=== PATIENT | male | born 1935 | race Caucasian/White ===

== ENCOUNTER 2018-06-10 00:34 | Inpatient (IN) | payer MEDICARE, OTHER ==
[~2018-06-10] VITALS: Ht 180.3 cm; Wt 92.7 kg
[2018-06-10] VITALS (13 sets, daily range): BP systolic 94–144; BP diastolic 47–85
[~2018-06-10 00:34] MED LIST: ALBU8.5H8 IH; CHOL10002 PO; DRON400T2 PO; FINA5TAB11 PO; FURO40TA4 PO; LISI-604 PO; OMEP40CA37 PO; PRAV10TA39 PO
[2018-06-10] MEDS ORDERED: POTA10TA19 PO (00:47)
[2018-06-10] MEDS ORDERED: GABA-532 PO (00:47)
[2018-06-10] MEDS ORDERED: FERR325T28 PO (00:47)
[2018-06-10] MEDS ORDERED: UMEC1DIS IH (00:47)
[2018-06-10] MEDS ORDERED: DRON400T2 PO (00:47)
[2018-06-10] MEDS ORDERED: normal saline 1000ML IV soln IVB ONE (00:55)
[2018-06-10] MEDS ORDERED: meclizine 12.5mg tablet PO ONE (00:55)
[2018-06-10 01:11] LABS: BASOPHILS # (AUTO) 0.1 X10'3 (0-0.2); BASOPHILS % (AUTO) 1.1 % (0-1); EOSINOPHILS # (AUTO) 0.2 X10'3 (0-0.9); EOSINOPHILS % (AUTO) 3.5 % (0-6); LYMPHOCYTES # (AUTO) 1.9 X10'3 (1.1-4.8); MEAN CORPUSCULAR HEMOGLOBIN 24.3 PG (27.0-31.0); MEAN CORPUSCULAR HGB CONC 32.2 % (33.0-36.5); MEAN CORPUSCULAR VOLUME 75.5 FL (78-98); MEAN PLATELET VOLUME 8.4 FL (7.4-10.4); MONOCYTES # (AUTO) 0.5 X10'3 (0-0.9); MONOCYTES % (AUTO) 8.1 % (2-12); NEUTROPHILS % (AUTO) 59.3 % (42-75); PLATELET COUNT 225 X10'3 (140-440); RED BLOOD COUNT 2.61 X10'6 (4.70-6.10); RED CELL DISTRIBUTION WIDTH 18.8 % (11.5-14.5); WHITE BLOOD COUNT 6.7 X10'3 (4.5-11.0)
[2018-06-10 01:18] LABS: HEMATOCRIT 19.7 % (42.0-52.0); HEMOGLOBIN 6.4 g/dl (14.0-17.9)
[2018-06-10 01:26] LABS: ALANINE AMINOTRANSFERASE 21 U/L (12-78); ALBUMIN 3.2 G/DL (3.4-5.0); ALBUMIN/GLOBULIN RATIO 0.8 (1.1-1.5); ALKALINE PHOSPHATASE 78 IU/L (46-116); ANION GAP 10 (8-16); ASPARTATE AMINO TRANSFERASE 19 U/L (10-37); BILIRUBIN,TOTAL 0.2 MG/DL (0.1-1.0); BLOOD UREA NITROGEN 31 MG/DL (7-18); BUN/CREATININE RATIO 17.9 (5.4-32.0); CALCIUM 8.5 MG/DL (8.5-10.1); CHLORIDE 108 MMOL/L (99-107); CREATININE 1.73 MG/DL (0.60-1.10); GLUCOSE 116 MG/DL (70-104); SODIUM 141 MMOL/L (135-145); TOTAL CARBON DIOXIDE 22.7 MMOL/L (24-32); eGFR 38 ML/MIN
[2018-06-10 01:27] LABS: D-DIMER 4.14 MG/L FEU (0-0.50)
[2018-06-10] MEDS ORDERED: normal saline 1000ml 1,000 ML IV SCH (02:38)
[2018-06-10] MEDS ORDERED: ondansetron/PF 4mg/2ml inj IV PRN (02:40)
[2018-06-10] MEDS ORDERED: mag hydrox/Alum hydrox/simeth 30ml oral suspension PO PRN (02:40)
[2018-06-10] MEDS ORDERED: magnesium hydroxide 30ml (MOM) UD suspension PO PRN (02:40)
[2018-06-10] MEDS ORDERED: acetaminophen 325mg tablet PO PRN (02:40)
[2018-06-10] MEDS ORDERED: furosemide 10 MG/1 ML 10ml inj IV ONE (02:45)
[2018-06-10 02:58] LABS: RETICULOCYTE % (AUTO) 2.1 % (0.5-1.5)
[2018-06-10 03:00] LABS: ABSOLUTE RETICS # 57000 /CUMM (23000-93000)
[2018-06-10] MEDS ORDERED: albuterol 2.5 MG/3 ML nebule NEB PRN (04:00)
[2018-06-10] MEDS ORDERED: pantoprazole 40mg Tablet.DR PO SCH (08:00)
[2018-06-10] MEDS ORDERED: Umeclidinium Brm/Vilanterol Tr (Anoro Ellipta 62.5-25 Mcg INH) IH SCH (08:00)
[2018-06-10] MEDS ORDERED: dronedarone hcl 400mg tablet PO SCH (08:00)
[2018-06-10] MEDS: finasteride 5mg tablet PO SCH (08:57)
[2018-06-10 12:25] LABS: BASOPHILS % (AUTO) 0.4 % (0-1); EOSINOPHILS # (AUTO) 0.2 X10'3 (0-0.9); EOSINOPHILS % (AUTO) 3.9 % (0-6); HEMATOCRIT 26.5 % (42.0-52.0); HEMOGLOBIN 8.3 g/dl (14.0-17.9); LYMPHOCYTES # (AUTO) 1.4 X10'3 (1.1-4.8); LYMPHOCYTES % (AUTO) 21.8 % (21-51); MEAN CORPUSCULAR HEMOGLOBIN 24.3 PG (27.0-31.0); MEAN CORPUSCULAR HGB CONC 31.4 % (33.0-36.5); MEAN CORPUSCULAR VOLUME 77.4 FL (78-98); MEAN PLATELET VOLUME 8.2 FL (7.4-10.4); MONOCYTES # (AUTO) 0.6 X10'3 (0-0.9); MONOCYTES % (AUTO) 10.1 % (2-12); NEUTROPHILS % (AUTO) 63.8 % (42-75); PLATELET COUNT 259 X10'3 (140-440); RED BLOOD COUNT 3.42 X10'6 (4.70-6.10); RED CELL DISTRIBUTION WIDTH 19.3 % (11.5-14.5); WHITE BLOOD COUNT 6.3 X10'3 (4.5-11.0)
[2018-06-10 15:55] LABS: OCCULT BLOOD STOOL NEGATIVE (Neg)
[2018-06-10] MEDS: pantoprazole 40 MG vial IV SCH (16:21)
[2018-06-10 20:58] LABS: % IRON SATURATION 33 % (11-46); IRON 117 UG/DL (53-167); TOTAL IRON BINDING CAPACITY 358 UG/DL (259-388)
[2018-06-11] VITALS: BP 134/55
[2018-06-11 06:13] LABS: ALANINE AMINOTRANSFERASE 17 U/L (12-78); ALBUMIN 2.9 G/DL (3.4-5.0); ALBUMIN/GLOBULIN RATIO 0.8 (1.1-1.5); ALKALINE PHOSPHATASE 69 IU/L (46-116); ANION GAP 10 (8-16); BILIRUBIN,TOTAL 0.3 MG/DL (0.1-1.0); BLOOD UREA NITROGEN 24 MG/DL (7-18); BUN/CREATININE RATIO 15.8 (5.4-32.0); CALCIUM 8.5 MG/DL (8.5-10.1); CHLORIDE 108 MMOL/L (99-107); CREATININE 1.52 MG/DL (0.60-1.10); GLUCOSE 82 MG/DL (70-104); SODIUM 139 MMOL/L (135-145); TOTAL CARBON DIOXIDE 20.6 MMOL/L (24-32); TOTAL PROTEIN 6.5 G/DL (6.4-8.2); eGFR 44 ML/MIN
[2018-06-11 06:18] LABS: ASPARTATE AMINO TRANSFERASE 34 U/L (10-37); POTASSIUM 4.6 MMOL/L (3.5-5.1)
[2018-06-11 07:12] VITALS: BP 128/62
[2018-06-11 07:27] LABS: BASOPHILS % (AUTO) 0.4 % (0-1); EOSINOPHILS # (AUTO) 0.3 X10'3 (0-0.9); EOSINOPHILS % (AUTO) 3.7 % (0-6); HEMATOCRIT 24.2 % (42.0-52.0); HEMOGLOBIN 7.7 g/dl (14.0-17.9); LYMPHOCYTES # (AUTO) 1.7 X10'3 (1.1-4.8); LYMPHOCYTES % (AUTO) 23.9 % (21-51); MEAN CORPUSCULAR HEMOGLOBIN 24.4 PG (27.0-31.0); MEAN CORPUSCULAR HGB CONC 31.9 % (33.0-36.5); MEAN CORPUSCULAR VOLUME 76.3 FL (78-98); MEAN PLATELET VOLUME 8.1 FL (7.4-10.4); MONOCYTES # (AUTO) 0.7 X10'3 (0-0.9); MONOCYTES % (AUTO) 9.8 % (2-12); NEUTROPHILS # (AUTO) 4.4 X10'3 (1.8-7.7); NEUTROPHILS % (AUTO) 62.2 % (42-75); PLATELET COUNT 231 X10'3 (140-440); RED BLOOD COUNT 3.17 X10'6 (4.70-6.10); RED CELL DISTRIBUTION WIDTH 19.6 % (11.5-14.5); WHITE BLOOD COUNT 7.1 X10'3 (4.5-11.0)
[2018-06-11] MEDS: pantoprazole 40 MG vial IV SCH (09:22)
[2018-06-11] MEDS: finasteride 5mg tablet PO SCH (09:26)
[2018-06-11] MEDS ORDERED: amiodarone 200mg tablet PO SCH (10:20)
[2018-06-11 12:09] LABS: BASOPHILS # (AUTO) 0.1 X10'3 (0-0.2); BASOPHILS % (AUTO) 0.9 % (0-1); EOSINOPHILS # (AUTO) 0.3 X10'3 (0-0.9); EOSINOPHILS % (AUTO) 3.3 % (0-6); HEMATOCRIT 25.9 % (42.0-52.0); HEMOGLOBIN 8.2 g/dl (14.0-17.9); LYMPHOCYTES # (AUTO) 1.5 X10'3 (1.1-4.8); LYMPHOCYTES % (AUTO) 18.9 % (21-51); MEAN CORPUSCULAR HEMOGLOBIN 24.2 PG (27.0-31.0); MEAN CORPUSCULAR HGB CONC 31.6 % (33.0-36.5); MEAN CORPUSCULAR VOLUME 76.7 FL (78-98); MEAN PLATELET VOLUME 8.3 FL (7.4-10.4); MONOCYTES # (AUTO) 0.6 X10'3 (0-0.9); MONOCYTES % (AUTO) 7.9 % (2-12); NEUTROPHILS # (AUTO) 5.5 X10'3 (1.8-7.7); PLATELET COUNT 252 X10'3 (140-440); RED BLOOD COUNT 3.37 X10'6 (4.70-6.10); RED CELL DISTRIBUTION WIDTH 19.3 % (11.5-14.5)
[2018-06-11] MEDS ORDERED: ASPI81TA52 PO (12:41)
[2018-06-11 12:49] VITALS: BP 125/53
== END 2018-06-11 14:50 | disposition home or self-care (01) | DRG 292 ==
LOC: ER 00:34 → ED HOLD 02:38 → EDBEDREQTM 03:18 → SUR 3N 03:35 → CMPBEDREQ 04:18
PROVIDERS: ADMIT Internal Medicine; ATTEND Internal Medicine
PROC: 30233N1 Transfusion of Nonautologous Red Blood Cells into Peripheral Vein, Percutaneous Approach (ICD-10-PCS; principal; 2018-06-10)
PROC: CB121ZZ Planar Nuclear Medicine Imaging of Lungs and Bronchi using Technetium 99m (Tc-99m) (ICD-10-PCS; 2018-06-10)
PROC: 4B02XTZ Measurement of Cardiac Defibrillator, External Approach (ICD-10-PCS; 2018-06-10)
DX: I13.0 Hypertensive heart and chronic kidney disease with heart failure and stage 1 through stage 4 chronic kidney disease, or unspecified chronic kidney disease (principal); I50.22 Chronic systolic (congestive) heart failure; I42.9 Cardiomyopathy, unspecified; D63.8 Anemia in other chronic diseases classified elsewhere; E78.5 Hyperlipidemia, unspecified; Z96.659 Presence of unspecified artificial knee joint; M10.9 Gout, unspecified; R00.1 Bradycardia, unspecified; G25.81 Restless legs syndrome; I48.0 Paroxysmal atrial fibrillation; J44.9 Chronic obstructive pulmonary disease, unspecified; N18.3 Chronic kidney disease, stage 3 (moderate); Z90.5 Acquired absence of kidney; Z91.041 Radiographic dye allergy status; Z95.810 Presence of automatic (implantable) cardiac defibrillator; Z88.0 Allergy status to penicillin; Z88.8 Allergy status to other drugs, medicaments and biological substances; Z79.82 Long term (current) use of aspirin; Z79.899 Other long term (current) drug therapy; Z87.891 Personal history of nicotine dependence; Z85.528 Personal history of other malignant neoplasm of kidney; Z86.73 Personal history of transient ischemic attack (TIA), and cerebral infarction without residual deficits; Z86.718 Personal history of other venous thrombosis and embolism
CPT/HCPCS: 36415; 71045; 71250; 74176; 78582; 80053; 82272; 83540; 83550; 83735; 83880; 84484; 85025; 85045; 85379; 86885; 86900; 86901; 86920; 87070; 93005; 97116; 97162; 99285; A9539; A9540; C9113; G0378; J1940; J7030; J8597; P9016

== ENCOUNTER 2018-07-25 09:41 | Emergency (ER) | payer MEDICARE, OTHER ==
[~2018-07-25] VITALS: Ht 180.3 cm; Wt 100.0 kg
[~2018-07-25 09:41] MED LIST changes: +ASPI81TA52 PO; -DRON400T2 PO; +FERR325T28 PO; -FURO40TA4 PO; +GABA-532 PO; +UMEC1DIS IH
[2018-07-25] MEDS ORDERED: HYDROcodone/acetaminophen 10/325mg tab PO ONE (10:35)
[2018-07-25] MEDS ORDERED: HYDR-4353 PO (12:00)
--- NOTE | 2018-07-25 12:45 | NUR ---
PT GIVEN PHONE TO CELIA ROSAS AND SET UP A RIDE HOME.
--- NOTE | 2018-07-25 12:51 | NUR ---
DR HOLLINS NOTIFIED THAT PT WOULD LIKE TO SEE HIM BEFORE HE HEADS HOME.
[2018-07-25 13:36] VITALS: BP 164/78
== END 2018-07-25 13:38 | disposition home or self-care (01) ==
LOC: ER 09:42
DX: S22.32XA Fracture of one rib, left side, initial encounter for closed fracture (principal); I10 Essential (primary) hypertension; Z86.73 Personal history of transient ischemic attack (TIA), and cerebral infarction without residual deficits; J44.9 Chronic obstructive pulmonary disease, unspecified; Z88.0 Allergy status to penicillin; Z88.8 Allergy status to other drugs, medicaments and biological substances; Z79.82 Long term (current) use of aspirin; Z79.899 Other long term (current) drug therapy; W18.39XA Other fall on same level, initial encounter; Y93.89 Activity, other specified; Y92.002 Bathroom of unspecified non-institutional (private) residence as the place of occurrence of the external cause; Y99.8 Other external cause status
CPT/HCPCS: 71045; 99284

== ENCOUNTER 2018-09-28 13:08 | Inpatient (IN) | payer MEDICARE, OTHER ==
[2018-09-28] VITALS (10 sets, daily range): BP systolic 122–159; BP diastolic 60–76
[~2018-09-28] VITALS: Ht 177.8 cm; Wt 91.0 kg
[2018-09-28] MEDS ORDERED: ondansetron/PF 4mg/2ml inj IV ONE (13:50)
[2018-09-28] MEDS ORDERED: morphine 4 MG/ML inj SYRINge IV ONE ×2 (13:50→15:50)
[2018-09-28] MEDS ORDERED: acetaminophen 325mg tablet PO ONE (13:50)
[2018-09-28 14:06] LABS: BASOPHILS # (AUTO) 0.1 X10'3 (0-0.2); BASOPHILS % (AUTO) 0.9 % (0-1); EOSINOPHILS % (AUTO) 0.3 % (0-6); HEMATOCRIT 28.6 % (42.0-52.0); HEMOGLOBIN 9.3 g/dl (14.0-17.9); LYMPHOCYTES # (AUTO) 1.2 X10'3 (1.1-4.8); LYMPHOCYTES % (AUTO) 8.5 % (21-51); MEAN CORPUSCULAR HGB CONC 32.4 g/dL (33.0-36.5); MEAN CORPUSCULAR VOLUME 92.5 FL (78-98); MEAN PLATELET VOLUME 8.7 FL (7.4-10.4); MONOCYTES # (AUTO) 1.2 X10'3 (0-0.9); MONOCYTES % (AUTO) 8.5 % (2-12); NEUTROPHILS # (AUTO) 11.1 X10'3 (1.8-7.7); NEUTROPHILS % (AUTO) 81.8 % (42-75); PLATELET COUNT 249 X10'3 (140-440); RED CELL DISTRIBUTION WIDTH 15.3 % (11.5-14.5); WHITE BLOOD COUNT 13.6 X10'3 (4.5-11.0)
--- NOTE | 2018-09-28 14:09 | NUR ---
patient given urinal to obtain urine sample
[2018-09-28 14:18] LABS: ALANINE AMINOTRANSFERASE 43 U/L (12-78); ALBUMIN 2.6 G/DL (3.4-5.0); ALBUMIN/GLOBULIN RATIO 0.6 (1.1-1.5); ALKALINE PHOSPHATASE 129 IU/L (46-116); ANION GAP 8 (8-16); ASPARTATE AMINO TRANSFERASE 37 U/L (10-37); BILIRUBIN,TOTAL 0.2 MG/DL (0.1-1.0); BLOOD UREA NITROGEN 25 MG/DL (7-18); BUN/CREATININE RATIO 16.2 (5.4-32.0); CALCIUM 8.8 MG/DL (8.5-10.1); CHLORIDE 105 MMOL/L (99-107); CREATININE 1.54 MG/DL (0.60-1.10); GLUCOSE 88 MG/DL (70-104); POTASSIUM 3.7 MMOL/L (3.5-5.1); SODIUM 140 MMOL/L (135-145); TOTAL CARBON DIOXIDE 27.4 MMOL/L (24-32); TOTAL PROTEIN 6.7 G/DL (6.4-8.2); eGFR 43 ML/MIN
[2018-09-28 14:20] LABS: LIPASE 187 U/L (73-393); TROPONIN I < 0.04 NG/ML (0.0-0.05)
[2018-09-28] MEDS ORDERED: normal saline 1000ml 1,000 ML IV ONE (14:20)
[2018-09-28] MEDS ORDERED: cefepime 2g/NS 100ml ADVANTAGE 100 ML IV SCH (15:40)
[2018-09-28] MEDS ORDERED: metroNIDAZOLE-Flagyl 500mg/NS 100 ML IV SCH (15:40)
[2018-09-28] MEDS ORDERED: cefepime 2g/NS 100ml ADVANTAGE 100 ML IV ONE (15:53)
[2018-09-28] MEDS ORDERED: metroNIDAZOLE-Flagyl 500mg/NS 100 ML IV ONE (15:54)
[2018-09-28 16:00] LABS: CLARITY,URINE SLIGHTLY CLOUDY (Clear); COLOR,URINE YELLOW (Yellow); GLUCOSE, URINE NEGATIVE (Neg); KETONES,URINE NEGATIVE (Neg); LEUKOCYTE ESTERASE ,URINE NEGATIVE (Neg); NITRITES, URINE NEGATIVE (Neg); OCCULT BLOOD,URINE NEGATIVE (Neg); PH,URINE 5.5 (4.8-8.0); PROTEIN,URINE 30 mg/dl (Neg); UROBILINOGEN,URINE 0.2 E.U/dL (0.2-1.0)
[2018-09-28 16:02] LABS: UA COLLECTION TYPE STRAIGHT CATH
[2018-09-28] MEDS ORDERED: normal saline 1000ml 1,000 ML IV SCH (16:02)
[2018-09-28 16:05] LABS: HYALINE CASTS 0-3 /LPF (NEGATIVE); MUCUS STRANDS MANY /LPF (Neg); SQUAMOUS EPITHELIAL CELL,UR FEW /LPF (FEW)
[2018-09-28] MEDS ORDERED: magnesium 2GM in 50ml NS 50 ML IV PRN (16:05)
[2018-09-28] MEDS ORDERED: potassium Cl 20 mEq SR tablet PO PRN ×2 (16:05)
[2018-09-28] MEDS ORDERED: magnesium 4gm in 100ml NS 100 ML IV PRN (16:05)
[2018-09-28] MEDS ORDERED: magnesium hydroxide 30ml (MOM) UD suspension PO PRN (16:05)
[2018-09-28] MEDS ORDERED: potassium Cl 40MEQ/NS 500ml 500 ML IV PRN ×2 (16:05)
[2018-09-28] MEDS ORDERED: mag hydrox/Alum hydrox/simeth 30ml oral suspension PO PRN (16:05)
[2018-09-28] MEDS ORDERED: acetaminophen 325mg tablet PO PRN ×2 (16:05)
[2018-09-28] MEDS ORDERED: morphine 4 MG/ML inj SYRINge IV PRN ×2 (16:05)
[2018-09-28] MEDS ORDERED: magnesium Cl slow-release 64mg tablet PO PRN (16:05)
[2018-09-28] MEDS ORDERED: ondansetron/PF 4mg/2ml inj IV PRN (16:05)
[2018-09-28 16:08] LABS: AMORPHOUS URATES 2+; BACTERIA,URINE NONE SEEN /HPF (Neg); COARSE GRANULAR CAST 0-3 /LPF (NEGATIVE); RENAL CELLS, URINE FEW /HPF; TRANSITIONAL EPI CELLS,URINE FEW /HPF; WBC,URINE 0-4 /HPF (0-4)
[2018-09-28] MEDS ORDERED: FURO-149 PO (17:06)
[2018-09-28] MEDS ORDERED: MULT1TAB74 PO (17:06)
[2018-09-28] MEDS ORDERED: DRON400T2 PO (17:06)
[2018-09-28] MEDS ORDERED: CALC500T11 PO (17:06)
[2018-09-28] MEDS ORDERED: clindamycin phosphate 150mg/ml inj. ONE (19:32)
[2018-09-28] MEDS ORDERED: gentamicin 40 MG/1 ML inj ONE (19:32)
[2018-09-28] MEDS ORDERED: calcium carbonate 500mg chew tablet PO PRN (20:05)
[2018-09-28] MEDS ORDERED: ipratropium/albuterol 3ml nebule NEB PRN (20:10)
[2018-09-28] MEDS ORDERED: sevoflurane 250ml liquid IH ONE (20:22)
[2018-09-28] MEDS ORDERED: fentaNYL/PF 50MCG/1 ML 2ML syringe ONE ×2 (20:26→21:53)
[2018-09-28] MEDS ORDERED: cefotetan 2gm/isosm dext IVPB 50 ML IV ONE (20:47)
[2018-09-28] MEDS ORDERED: propofol inj 20 ML IV ONE (20:52)
[2018-09-28] MEDS ORDERED: rocuronium 10mg/ml inj IV ONE (20:52)
[2018-09-28] MEDS ORDERED: LIDOcaine 2% (20mg/ml) 5ml vial ONE (20:52)
[2018-09-28] MEDS ORDERED: dexamethasone sod phosphate 4mg/ml inj. ONE (20:52)
[2018-09-28] MEDS ORDERED: neostigmine methylsulfate 1 MG/ML 10ml vial ONE (21:37)
[2018-09-28] MEDS ORDERED: glycopyrrolate 0.2mg/ml inj ONE (21:37)
[2018-09-28] MEDS ORDERED: ondansetron/PF 4mg/2ml inj ONE (21:37)
[2018-09-28] MEDS ORDERED: labetalol 20mg/4ml (5mg/ml) syringe IV ONE (22:18)
[2018-09-28] MEDS: gabapentin 300mg capsule PO SCH (22:21)
[2018-09-28] MEDS: HYDROmorphone inj. 0.5 MG/0.5 ML DISP.SYRIN IV PRN (22:42)
[2018-09-28 23:04] LABS: BASOPHILS % (AUTO) 0.2 % (0-1); EOSINOPHILS # (AUTO) 0.1 X10'3 (0-0.9); EOSINOPHILS % (AUTO) 0.3 % (0-6); HEMATOCRIT 31.3 % (42.0-52.0); HEMOGLOBIN 9.9 g/dl (14.0-17.9); LYMPHOCYTES # (AUTO) 1.7 X10'3 (1.1-4.8); LYMPHOCYTES % (AUTO) 9.5 % (21-51); MEAN CORPUSCULAR HEMOGLOBIN 29.7 PG (27.0-31.0); MEAN CORPUSCULAR HGB CONC 31.7 g/dL (33.0-36.5); MEAN CORPUSCULAR VOLUME 93.5 FL (78-98); MEAN PLATELET VOLUME 8.7 FL (7.4-10.4); MONOCYTES # (AUTO) 0.5 X10'3 (0-0.9); MONOCYTES % (AUTO) 2.6 % (2-12); NEUTROPHILS # (AUTO) 15.8 X10'3 (1.8-7.7); NEUTROPHILS % (AUTO) 87.4 % (42-75); PLATELET COUNT 257 X10'3 (140-440); RED BLOOD COUNT 3.35 X10'6 (4.70-6.10); RED CELL DISTRIBUTION WIDTH 15.8 % (11.5-14.5); WHITE BLOOD COUNT 18.1 X10'3 (4.5-11.0)
[2018-09-28 23:06] LABS: ALANINE AMINOTRANSFERASE 34 U/L (12-78); ALBUMIN 2.5 G/DL (3.4-5.0); ALBUMIN/GLOBULIN RATIO 0.6 (1.1-1.5); ALKALINE PHOSPHATASE 121 IU/L (46-116); ANION GAP 10 (8-16); ASPARTATE AMINO TRANSFERASE 32 U/L (10-37); BILIRUBIN,TOTAL 0.3 MG/DL (0.1-1.0); BLOOD UREA NITROGEN 24 MG/DL (7-18); BUN/CREATININE RATIO 15.5 (5.4-32.0); CALCIUM 8.3 MG/DL (8.5-10.1); CHLORIDE 107 MMOL/L (99-107); CREATININE 1.55 MG/DL (0.60-1.10); GLUCOSE 118 MG/DL (70-104); MAGNESIUM 1.6 MG/DL (1.5-2.4); PHOSPHORUS 3.1 MG/DL (2.3-4.5); POTASSIUM 4.2 MMOL/L (3.5-5.1); SODIUM 141 MMOL/L (135-145); TOTAL CARBON DIOXIDE 23.8 MMOL/L (24-32); TOTAL PROTEIN 6.5 G/DL (6.4-8.2); eGFR 43 ML/MIN
[2018-09-28 23:53] LABS: BURR CELLS 1+; PLATELET ESTIMATE NORMAL; TOTAL CELLS COUNTED 100
[2018-09-28] MEDS: ipratropium/albuterol 3ml nebule NEB SCH (23:53)
[2018-09-28 23:54] LABS: POIKILOCYTOSIS FEW
[2018-09-28 23:55] LABS: TOXIC GRANULATION 1+
[2018-09-29] VITALS (15 sets, daily range): BP systolic 100–132; BP diastolic 51–71
[2018-09-29] MEDS: potassium CL 20mEq in D5-1/2NS 1,000 ML IV SCH ×4 (00:11→17:47)
[2018-09-29] MEDS: metroNIDAZOLE-Flagyl 500mg/NS 100 ML IV SCH ×3 (00:12→15:42)
[2018-09-29] MEDS: HYDROmorphone inj. 0.5 MG/0.5 ML DISP.SYRIN IV PRN ×2 (01:15→05:27)
--- NOTE | 2018-09-29 02:33 | NUR ---
[id number]..Received pt from OR into room 2006. Pt awake but sleepy, assessment as noted.
--- NOTE | 2018-09-29 02:34 | NUR ---
0000..More awake, states pain meds effective, no other changes noted.
[2018-09-29] MEDS: ipratropium/albuterol 3ml nebule NEB SCH ×6 (02:58→23:23)
[2018-09-29 05:03] LABS: BASOPHILS % (AUTO) 0.2 % (0-1); EOSINOPHILS % (AUTO) 0 % (0-6); HEMATOCRIT 29.2 % (42.0-52.0); HEMOGLOBIN 9.3 g/dl (14.0-17.9); LYMPHOCYTES # (AUTO) 0.6 X10'3 (1.1-4.8); LYMPHOCYTES % (AUTO) 3.5 % (21-51); MEAN CORPUSCULAR VOLUME 93.7 FL (78-98); MEAN PLATELET VOLUME 8.9 FL (7.4-10.4); MONOCYTES # (AUTO) 0.7 X10'3 (0-0.9); NEUTROPHILS % (AUTO) 92.3 % (42-75); PLATELET COUNT 256 X10'3 (140-440); RED BLOOD COUNT 3.11 X10'6 (4.70-6.10); RED CELL DISTRIBUTION WIDTH 15.2 % (11.5-14.5); WHITE BLOOD COUNT 18.4 X10'3 (4.5-11.0)
[2018-09-29 05:19] LABS: ALBUMIN 2.3 G/DL (3.4-5.0); ANION GAP 10 (8-16); BLOOD UREA NITROGEN 22 MG/DL (7-18); CALCIUM 8.3 MG/DL (8.5-10.1); CHLORIDE 106 MMOL/L (99-107); CREATININE 1.47 MG/DL (0.60-1.10); GLUCOSE 178 MG/DL (70-104); MAGNESIUM 1.6 MG/DL (1.5-2.4); POTASSIUM 4.4 MMOL/L (3.5-5.1); SODIUM 140 MMOL/L (135-145); TOTAL CARBON DIOXIDE 24.4 MMOL/L (24-32); eGFR 46 ML/MIN
--- NOTE | 2018-09-29 05:30 | NUR ---
0400..Resting quietly, no changes noted.
--- NOTE | 2018-09-29 06:13 | NUR ---
0610..Problems reprioritized. Patient report given, questions answered & plan of care reviewed with Ruma HOPKINS.
[2018-09-29] MEDS: multivitamins, therapeutics tablet PO SCH (07:13)
[2018-09-29] MEDS: furosemide 20 MG/2 ML vial IV SCH ×2 (07:13→19:06)
[2018-09-29] MEDS: pantoprazole 40mg Tablet.DR PO SCH (07:13)
[2018-09-29] MEDS: vitamin D (cholecalciferol) 1,000 unit tablet PO SCH (07:13)
[2018-09-29] MEDS: cefepime 2g/NS 100ml ADVANTAGE 100 ML IV SCH (07:14)
[2018-09-29 07:24] LABS: PLATELET ESTIMATE NORMAL; TOTAL CELLS COUNTED 100
[2018-09-29] MEDS: dronedarone hcl 400mg tablet PO SCH ×2 (07:30→17:33)
[2018-09-29] MEDS: pravastatin 10mg tablet PO SCH (08:00)
[2018-09-29] MEDS: K and/or MAG REPLACEMENT MC SCH (08:00)
[2018-09-29] MEDS ORDERED: cefepime 1GM/NS ADD-VANTAGE 100 ML IV SCH (08:00)
--- NOTE | 2018-09-29 09:24 | NUR ---
Pacemaker Pacemaker does not seem to be acting right patient has had problems with pacemaker in the past. Called Dr. Way office to request pacemaker information than called [employer] for the local new accounts banking representative to come look at the pacer. Waleska stated that she was finishing up a procedure and would be on her way.
[2018-09-29] MEDS: HYDROcodone/acetaminophen 10/325mg tab PO PRN ×2 (10:16→15:55)
[2018-09-29] MEDS: BUDESONIDE 0.25 MG/2 ML AMPUL.NEB IH SCH ×2 (10:49→23:23)
--- NOTE | 2018-09-29 12:46 | NUR ---
RECEIVED REPORT VIA TELEPHONE FROM SANDEEP GARCIA. RECEIVED PT VIA BED. VS STABLE. AGREE WITH PRIOR ASSESSMENT.
--- NOTE | 2018-09-29 18:25 | NUR ---
RECEIVED REPORT FROM JORDON HOPKINS AND ASSUMED PATIENT CARE
--- NOTE | 2018-09-29 18:37 | NUR ---
Problems reprioritized. Patient report given, questions answered & plan of care reviewed with SANDEEP HO.
[2018-09-29] MEDS: gabapentin 300mg capsule PO SCH (19:06)
[2018-09-29] MEDS: ondansetron/PF 4mg/2ml inj IV PRN (21:02)
[2018-09-30] MEDS: potassium CL 20mEq in D5-1/2NS 1,000 ML IV SCH ×3 (00:02→18:36)
[2018-09-30] MEDS: metroNIDAZOLE-Flagyl 500mg/NS 100 ML IV SCH ×4 (00:02→23:37)
[2018-09-30 02:00] VITALS: BP 111/68
[2018-09-30] MEDS: ipratropium/albuterol 3ml nebule NEB SCH ×6 (03:46→23:58)
[2018-09-30 06:00] VITALS: BP 115/69
[2018-09-30 06:15] LABS: BASOPHILS % (AUTO) 0.3 % (0-1); EOSINOPHILS # (AUTO) 0.2 X10'3 (0-0.9); EOSINOPHILS % (AUTO) 1.3 % (0-6); HEMOGLOBIN 8.5 g/dl (14.0-17.9); LYMPHOCYTES # (AUTO) 1.1 X10'3 (1.1-4.8); LYMPHOCYTES % (AUTO) 9.7 % (21-51); MEAN CORPUSCULAR HEMOGLOBIN 30.1 PG (27.0-31.0); MEAN CORPUSCULAR HGB CONC 32.6 g/dL (33.0-36.5); MEAN CORPUSCULAR VOLUME 92.5 FL (78-98); MEAN PLATELET VOLUME 8.5 FL (7.4-10.4); MONOCYTES # (AUTO) 1.1 X10'3 (0-0.9); MONOCYTES % (AUTO) 9.3 % (2-12); NEUTROPHILS # (AUTO) 9.3 X10'3 (1.8-7.7); NEUTROPHILS % (AUTO) 79.4 % (42-75); PLATELET COUNT 278 X10'3 (140-440); RED BLOOD COUNT 2.82 X10'6 (4.70-6.10); RED CELL DISTRIBUTION WIDTH 15.4 % (11.5-14.5); WHITE BLOOD COUNT 11.7 X10'3 (4.5-11.0)
[2018-09-30 06:28] LABS: ANION GAP 8 (8-16); BLOOD UREA NITROGEN 20 MG/DL (7-18); BUN/CREATININE RATIO 13.2 (5.4-32.0); CALCIUM 7.9 MG/DL (8.5-10.1); CHLORIDE 104 MMOL/L (99-107); CREATININE 1.51 MG/DL (0.60-1.10); GLUCOSE 132 MG/DL (70-104); MAGNESIUM 1.5 MG/DL (1.5-2.4); POTASSIUM 4.1 MMOL/L (3.5-5.1); SODIUM 135 MMOL/L (135-145); TOTAL CARBON DIOXIDE 23.1 MMOL/L (24-32); eGFR 44 ML/MIN
--- NOTE | 2018-09-30 06:30 | NUR ---
Patient in room PCU 3016. I have received report from SANDEEP HO and had the opportunity to ask questions and assume patient care.
[2018-09-30] MEDS: BUDESONIDE 0.25 MG/2 ML AMPUL.NEB IH SCH ×2 (07:32→19:46)
[2018-09-30] MEDS: dronedarone hcl 400mg tablet PO SCH ×2 (07:42→17:32)
[2018-09-30] MEDS: pantoprazole 40mg Tablet.DR PO SCH (07:43)
[2018-09-30] MEDS: furosemide 20 MG/2 ML vial IV SCH ×2 (07:46→19:47)
[2018-09-30] MEDS: pravastatin 10mg tablet PO SCH (07:51)
[2018-09-30] MEDS: vitamin D (cholecalciferol) 1,000 unit tablet PO SCH (07:52)
[2018-09-30] MEDS: multivitamins, therapeutics tablet PO SCH (07:52)
[2018-09-30] MEDS: HYDROcodone/acetaminophen 10/325mg tab PO PRN ×4 (07:53→21:19)
[2018-09-30] MEDS: heparin, porcine 5000 units/ml vial SQ SCH ×2 (07:54→19:47)
[2018-09-30] MEDS: K and/or MAG REPLACEMENT MC SCH (08:00)
[2018-09-30] MEDS: cefepime 2g/NS 100ml ADVANTAGE 100 ML IV SCH (09:46)
[2018-09-30] MEDS: HYDROmorphone inj. 0.5 MG/0.5 ML DISP.SYRIN IV PRN (10:28)
[2018-09-30 11:00] VITALS: BP 102/61
--- NOTE | 2018-09-30 11:35 | NUR ---
de la cruz catheter discontinued per md order. well yfn.urinal at bedside, verbalized how to use it while in bed.
[2018-09-30 15:00] VITALS: BP 110/59
--- NOTE | 2018-09-30 15:04 | NUR ---
REMOVED SURGICAL DRESSING, REMOVED WOUND PACKING. INC APPROX 5 INCHES, WELL APPROXIMATED WITH SMALL AMT SEROUS/SANGUINOUS DRAINAGE. 7 ISMA NOTED.APOLLO DRAIN REMOVED, 2X2 DRESSING APPLIED TO SITE. [place] DRESSING APPLIED TO INC. PER MD ORDERS. NICO HORTA.
[2018-09-30 18:00] VITALS: BP 112/58
--- NOTE | 2018-09-30 18:30 | NUR ---
Problems reprioritized. Patient report given, questions answered & plan of care reviewed with SANDEEP PATINO.
--- NOTE | 2018-09-30 18:44 | NUR ---
Patient in room PCU 3016. I have received report from Alfred RN and Guy RN and had the opportunity to ask questions and assume patient care.
--- NOTE | 2018-09-30 18:48 | NUR ---
BUSINESS SYSTEMS MANAGERgrappler: I have reviewed and agree with all interventions, assessments performed and documented by SANDEEP JONES.
[2018-09-30] MEDS: gabapentin 300mg capsule PO SCH (20:52)
[2018-09-30 22:00] VITALS: BP 111/51
[2018-10-01 02:00] VITALS: BP 111/51
[2018-10-01] MEDS: potassium CL 20mEq in D5-1/2NS 1,000 ML IV SCH ×3 (02:54→21:52)
[2018-10-01] MEDS: HYDROcodone/acetaminophen 5mg/325mg tablet PO PRN ×2 (02:54→08:15)
[2018-10-01] MEDS: ipratropium/albuterol 3ml nebule NEB SCH ×6 (03:35→23:00)
[2018-10-01 05:48] LABS: BASOPHILS % (AUTO) 0.5 % (0-1); EOSINOPHILS # (AUTO) 0.2 X10'3 (0-0.9); EOSINOPHILS % (AUTO) 2.2 % (0-6); HEMATOCRIT 24.5 % (42.0-52.0); HEMOGLOBIN 8.2 g/dl (14.0-17.9); LYMPHOCYTES # (AUTO) 1.1 X10'3 (1.1-4.8); LYMPHOCYTES % (AUTO) 11.3 % (21-51); MEAN CORPUSCULAR HEMOGLOBIN 30.8 PG (27.0-31.0); MEAN CORPUSCULAR HGB CONC 33.5 g/dL (33.0-36.5); MEAN CORPUSCULAR VOLUME 91.8 FL (78-98); MEAN PLATELET VOLUME 8.5 FL (7.4-10.4); MONOCYTES # (AUTO) 1.1 X10'3 (0-0.9); MONOCYTES % (AUTO) 11.2 % (2-12); NEUTROPHILS # (AUTO) 7.4 X10'3 (1.8-7.7); NEUTROPHILS % (AUTO) 74.8 % (42-75); PLATELET COUNT 281 X10'3 (140-440); RED BLOOD COUNT 2.67 X10'6 (4.70-6.10); RED CELL DISTRIBUTION WIDTH 15.4 % (11.5-14.5); WHITE BLOOD COUNT 9.8 X10'3 (4.5-11.0)
[2018-10-01 05:50] LABS: ALBUMIN 1.9 G/DL (3.4-5.0); ANION GAP 8 (8-16); BLOOD UREA NITROGEN 18 MG/DL (7-18); BUN/CREATININE RATIO 12.5 (5.4-32.0); CHLORIDE 103 MMOL/L (99-107); CREATININE 1.44 MG/DL (0.60-1.10); GLUCOSE 125 MG/DL (70-104); MAGNESIUM 1.5 MG/DL (1.5-2.4); POTASSIUM 4.3 MMOL/L (3.5-5.1); SODIUM 134 MMOL/L (135-145); TOTAL CARBON DIOXIDE 23.2 MMOL/L (24-32); eGFR 47 ML/MIN
[2018-10-01 06:00] VITALS: BP 91/59
--- NOTE | 2018-10-01 06:28 | NUR ---
Problems reprioritized. Patient report given, questions answered & plan of care reviewed with SANDEEP Ochoa.
[2018-10-01] MEDS: BUDESONIDE 0.25 MG/2 ML AMPUL.NEB IH SCH ×2 (07:48→20:21)
[2018-10-01] MEDS ORDERED: heparin, porcine 5000 units/ml vial SQ SCH (08:00)
[2018-10-01] MEDS: furosemide 20 MG/2 ML vial IV SCH ×2 (08:00→21:13)
[2018-10-01] MEDS: K and/or MAG REPLACEMENT MC SCH (08:00)
[2018-10-01] MEDS: vitamin D (cholecalciferol) 1,000 unit tablet PO SCH (08:15)
[2018-10-01] MEDS: multivitamins, therapeutics tablet PO SCH (08:15)
[2018-10-01] MEDS: pantoprazole 40mg Tablet.DR PO SCH (08:15)
[2018-10-01] MEDS: heparin, porcine 5000 units/ml vial SQ SCH ×2 (08:16→21:18)
[2018-10-01] MEDS: pravastatin 10mg tablet PO SCH (08:16)
[2018-10-01] MEDS: metroNIDAZOLE-Flagyl 500mg/NS 100 ML IV SCH ×3 (08:16→23:40)
[2018-10-01] MEDS: dronedarone hcl 400mg tablet PO SCH ×2 (08:16→17:30)
[2018-10-01] MEDS: cefepime 2g/NS 100ml ADVANTAGE 100 ML IV SCH (09:00)
[2018-10-01] MEDS: HYDROmorphone inj. 0.5 MG/0.5 ML DISP.SYRIN IV PRN ×2 (11:15→23:33)
[2018-10-01] MEDS ORDERED: LIDOcaine 2% 10ml TOPICAL JELLY (Urojet) MM ONE (13:45)
--- NOTE | 2018-10-01 14:30 | NUR ---
Patient in room PCU 3016. I have received report from SANDEEP Ochoa and had the opportunity to ask questions and assume patient care.
[2018-10-01 15:00] VITALS: BP 128/62
[2018-10-01] MEDS: ondansetron/PF 4mg/2ml inj IV PRN ×2 (18:02→23:34)
--- NOTE | 2018-10-01 18:10 | NUR ---
Problems reprioritized. Patient report given, questions answered & plan of care reviewed with SANDEEP Rodriguez.
--- NOTE | 2018-10-01 18:20 | NUR ---
Patient in room PCU 3016. I have received report from Gabriella HOPKINS and had the opportunity to ask questions and assume patient care.
[2018-10-01 18:30] VITALS: BP 115/66
[2018-10-01] MEDS: lactobacillus rhamnosus 10,000 MMU CELLS/CAPSULE PO SCH (20:00)
[2018-10-01] MEDS: gabapentin 300mg capsule PO SCH (21:00)
[2018-10-01] MEDS: metoclopramide 5 mg/ml inj IV PRN (21:10)
[2018-10-01 22:30] VITALS: BP 133/80
[2018-10-01] MEDS ORDERED: normal saline 1000ml 1,000 ML IV SCH (23:05)
--- NOTE | 2018-10-01 23:05 | NUR ---
called md for clarification on IVF as only on ns at 20cc/hr and patient not really eating as yet. Orders were different in e-mar. stated :NS at 75cc/hr.
[2018-10-02] MEDS: normal saline 1000ml 1,000 ML IV SCH ×2 (01:22→12:17)
[2018-10-02 02:45] VITALS: BP 168/89
[2018-10-02] MEDS: metoclopramide 5 mg/ml inj IV PRN (03:01)
[2018-10-02 05:23] LABS: BASOPHILS % (AUTO) 0.2 % (0-1); EOSINOPHILS % (AUTO) 0.1 % (0-6); HEMOGLOBIN 10.4 g/dl (14.0-17.9); LYMPHOCYTES # (AUTO) 0.7 X10'3 (1.1-4.8); LYMPHOCYTES % (AUTO) 4.7 % (21-51); MEAN CORPUSCULAR HEMOGLOBIN 29.6 PG (27.0-31.0); MEAN CORPUSCULAR HGB CONC 32.3 g/dL (33.0-36.5); MEAN CORPUSCULAR VOLUME 91.5 FL (78-98); MEAN PLATELET VOLUME 8.5 FL (7.4-10.4); MONOCYTES # (AUTO) 0.7 X10'3 (0-0.9); MONOCYTES % (AUTO) 4.7 % (2-12); NEUTROPHILS # (AUTO) 13.8 X10'3 (1.8-7.7); NEUTROPHILS % (AUTO) 90.3 % (42-75); PLATELET COUNT 412 X10'3 (140-440); RED CELL DISTRIBUTION WIDTH 15.6 % (11.5-14.5); WHITE BLOOD COUNT 15.3 X10'3 (4.5-11.0)
[2018-10-02] MEDS: potassium CL 20mEq in D5-1/2NS 1,000 ML IV SCH (05:52)
[2018-10-02 06:00] VITALS: BP 168/83
[2018-10-02 06:04] LABS: ALBUMIN 2.2 G/DL (3.4-5.0); ANION GAP 13 (8-16); BLOOD UREA NITROGEN 22 MG/DL (7-18); BUN/CREATININE RATIO 14.5 (5.4-32.0); CALCIUM 9.1 MG/DL (8.5-10.1); CHLORIDE 101 MMOL/L (99-107); CREATININE 1.52 MG/DL (0.60-1.10); GLUCOSE 121 MG/DL (70-104); MAGNESIUM 1.7 MG/DL (1.5-2.4); POTASSIUM 4.5 MMOL/L (3.5-5.1); SODIUM 136 MMOL/L (135-145); TOTAL CARBON DIOXIDE 22.3 MMOL/L (24-32); eGFR 44 ML/MIN
--- NOTE | 2018-10-02 06:26 | NUR ---
Problems reprioritized. Patient report given, questions answered & plan of care reviewed with Niyah Ferraro. Patient is currently resting with eyes closed and respirations steady. Patient had nausea on/off thru out shift. Emesis of 50cc dark green bile, and around another 20cc vp scientific from cough/spit in bag. Bs hypoactive. Zofran and reglan given as well as dilaudid for pain. Tried to encourage patient to walk several times thru out shift after antiemetic received, but patient refused each time, just wanting to rest, stating "I am 83yrs old". Patient also refused to allow for sheet and gown to be changed.
[2018-10-02] MEDS: ipratropium/albuterol 3ml nebule NEB SCH ×5 (07:00→23:52)
[2018-10-02] MEDS: dronedarone hcl 400mg tablet PO SCH ×2 (07:30→17:30)
[2018-10-02] MEDS: pravastatin 10mg tablet PO SCH (08:00)
[2018-10-02] MEDS: lactobacillus rhamnosus 10,000 MMU CELLS/CAPSULE PO SCH ×2 (08:00→20:00)
[2018-10-02] MEDS: multivitamins, therapeutics tablet PO SCH (08:00)
[2018-10-02] MEDS: K and/or MAG REPLACEMENT MC SCH (08:00)
[2018-10-02] MEDS: vitamin D (cholecalciferol) 1,000 unit tablet PO SCH (08:00)
[2018-10-02] MEDS: pantoprazole 40mg Tablet.DR PO SCH (08:14)
[2018-10-02] MEDS: furosemide 20 MG/2 ML vial IV SCH ×2 (08:14→19:50)
[2018-10-02] MEDS: heparin, porcine 5000 units/ml vial SQ SCH ×2 (08:15→19:49)
[2018-10-02] MEDS: metroNIDAZOLE-Flagyl 500mg/NS 100 ML IV SCH ×2 (08:16→16:39)
[2018-10-02] MEDS: BUDESONIDE 0.25 MG/2 ML AMPUL.NEB IH SCH ×2 (08:47→19:50)
[2018-10-02] MEDS: cefepime 2g/NS 100ml ADVANTAGE 100 ML IV SCH (09:25)
[2018-10-02] MEDS: methylnaltrexone br 12mg/0.6ml inj***SubQ only SQ SCH (10:51)
[2018-10-02 11:11] VITALS: BP 146/65
[2018-10-02 15:15] VITALS: BP 115/81
--- NOTE | 2018-10-02 18:25 | NUR ---
Patient in room PCU 3016. I have received report from Fabi HOPKINS and had the opportunity to ask questions and assume patient care.
[2018-10-02 19:00] VITALS: BP 120/75
[2018-10-02] MEDS: gabapentin 300mg capsule PO SCH (21:00)
[2018-10-02 23:00] VITALS: BP 139/74
[2018-10-03] MEDS: metroNIDAZOLE-Flagyl 500mg/NS 100 ML IV SCH ×3 (01:22→16:28)
[2018-10-03 03:00] VITALS: BP 144/76
[2018-10-03] MEDS: ipratropium/albuterol 3ml nebule NEB SCH ×6 (03:00→23:32)
[2018-10-03 06:00] VITALS: BP 147/72
--- NOTE | 2018-10-03 06:16 | NUR ---
Problems reprioritized. Patient report given, questions answered & plan of care reviewed with Fabi HOPKINS.
[2018-10-03 06:39] LABS: BASOPHILS % (AUTO) 0.4 % (0-1); EOSINOPHILS # (AUTO) 0.2 X10'3 (0-0.9); HEMATOCRIT 27.5 % (42.0-52.0); HEMOGLOBIN 9.2 g/dl (14.0-17.9); LYMPHOCYTES % (AUTO) 9.8 % (21-51); MEAN CORPUSCULAR HEMOGLOBIN 30.4 PG (27.0-31.0); MEAN CORPUSCULAR HGB CONC 33.4 g/dL (33.0-36.5); MEAN CORPUSCULAR VOLUME 90.8 FL (78-98); MEAN PLATELET VOLUME 8.2 FL (7.4-10.4); MONOCYTES # (AUTO) 1.1 X10'3 (0-0.9); MONOCYTES % (AUTO) 10.6 % (2-12); NEUTROPHILS # (AUTO) 7.8 X10'3 (1.8-7.7); NEUTROPHILS % (AUTO) 77.2 % (42-75); PLATELET COUNT 371 X10'3 (140-440); RED BLOOD COUNT 3.03 X10'6 (4.70-6.10); RED CELL DISTRIBUTION WIDTH 15.7 % (11.5-14.5); WHITE BLOOD COUNT 10.1 X10'3 (4.5-11.0)
[2018-10-03 06:45] LABS: ANION GAP 7 (8-16); BLOOD UREA NITROGEN 33 MG/DL (7-18); BUN/CREATININE RATIO 21.2 (5.4-32.0); CALCIUM 8.8 MG/DL (8.5-10.1); CHLORIDE 106 MMOL/L (99-107); CREATININE 1.56 MG/DL (0.60-1.10); GLUCOSE 101 MG/DL (70-104); MAGNESIUM 1.8 MG/DL (1.5-2.4); POTASSIUM 4.2 MMOL/L (3.5-5.1); SODIUM 138 MMOL/L (135-145); TOTAL CARBON DIOXIDE 25.1 MMOL/L (24-32); eGFR 43 ML/MIN
[2018-10-03] MEDS: BUDESONIDE 0.25 MG/2 ML AMPUL.NEB IH SCH ×2 (07:24→19:22)
[2018-10-03] MEDS: K and/or MAG REPLACEMENT MC SCH (07:25)
[2018-10-03] MEDS: pantoprazole 40mg Tablet.DR PO SCH (07:30)
[2018-10-03] MEDS: dronedarone hcl 400mg tablet PO SCH ×2 (07:30→17:30)
[2018-10-03] MEDS: vitamin D (cholecalciferol) 1,000 unit tablet PO SCH (08:00)
[2018-10-03] MEDS: lactobacillus rhamnosus 10,000 MMU CELLS/CAPSULE PO SCH ×2 (08:00→18:48)
[2018-10-03] MEDS: pravastatin 10mg tablet PO SCH (08:00)
[2018-10-03] MEDS ORDERED: methylnaltrexone br 12mg/0.6ml inj***SubQ only SQ SCH (08:00)
[2018-10-03] MEDS: multivitamins, therapeutics tablet PO SCH (08:00)
[2018-10-03] MEDS: cefepime 2g/NS 100ml ADVANTAGE 100 ML IV SCH (08:16)
[2018-10-03] MEDS: furosemide 20 MG/2 ML vial IV SCH ×2 (08:17→19:55)
[2018-10-03] MEDS: heparin, porcine 5000 units/ml vial SQ SCH ×2 (08:17→19:55)
--- NOTE | 2018-10-03 10:50 | NUR ---
PICC services was called to this patient due to the need for prolonged IV access. I attempted 1 time at the left Cephalic but was not successful, bleeding was controlled after a few seconds, maybe 3ml blood loss. I made my second attempt at the right Cephalic and was successful. Dressing placed and nurse educated. Addendum: 10/03/18 at 1053 by Jeremías Ray RN Amended: Links added.
[2018-10-03 11:00] VITALS: BP 141/69
[2018-10-03] MEDS: normal saline 1000ml 1,000 ML IV SCH ×3 (11:00→19:55)
[2018-10-03] MEDS ORDERED: pantoprazole 40 MG vial IV ONE (11:40)
--- NOTE | 2018-10-03 12:43 | NUR ---
Initial: patient is s/p open appendectomy and lysis of adhesions on 09/28. Patient is NPO now NG tube for suction. Patient was on a clear liquid diet and 09/28-09/30 and a regular diet from 09/30 to 10/02 when he was made NPO. Poor intake when he did have a diet order. No BM since day of surgery, patient began receiving reglan on 10/01 and relistor on 10/02. Noted pt receiving opiates for pain s/p surgery and no bowel care. He does have bowel sounds. When patient on PO diet would benefit from routine bowel care for bowel regularity. Will continue to follow. Recommend: 1. Advance as medically indicated to regular diet 2. PO Routine bowel care while taking pain medication 3. Wt per rx Addendum: 10/03/18 at [address] Amended: Links added.
[2018-10-03 15:15] VITALS: BP 147/74
[2018-10-03] MEDS: gabapentin 300mg capsule PO SCH (18:50)
[2018-10-03 22:00] VITALS: BP 153/78
[2018-10-03] MEDS: diatr meglu/diatrizoate 30ml oral sol.-(3 dose) bottle PO SCH (22:02)
[2018-10-03] MEDS: ondansetron/PF 4mg/2ml inj IV PRN (22:02)
[2018-10-04] MEDS: metroNIDAZOLE-Flagyl 500mg/NS 100 ML IV SCH ×4 (00:16→23:39)
[2018-10-04 02:00] VITALS: BP 132/59
[2018-10-04] MEDS: ipratropium/albuterol 3ml nebule NEB SCH ×7 (03:00→23:00)
[2018-10-04 06:00] VITALS: BP 148/87
--- NOTE | 2018-10-04 06:10 | NUR ---
Patient in room PCU 3016. I have received report from Bryanna HOPKINS and had the opportunity to ask questions and assume patient care.
[2018-10-04] MEDS: normal saline 1000ml 1,000 ML IV SCH ×2 (06:20→23:39)
--- NOTE | 2018-10-04 06:30 | NUR ---
Patient in room PCU 3016. I have received report from SANDEEP GARZA and had the opportunity to ask questions and assume patient care.
[2018-10-04] MEDS: furosemide 20 MG/2 ML vial IV SCH ×2 (07:27→21:10)
[2018-10-04] MEDS: ondansetron/PF 4mg/2ml inj IV PRN (07:28)
[2018-10-04] MEDS: heparin, porcine 5000 units/ml vial SQ SCH ×2 (07:28→21:13)
[2018-10-04] MEDS: dronedarone hcl 400mg tablet PO SCH ×2 (07:30→17:56)
[2018-10-04] MEDS: pantoprazole 40mg Tablet.DR PO SCH (07:30)
[2018-10-04] MEDS: diatr meglu/diatrizoate 30ml oral sol.-(3 dose) bottle PO SCH ×2 (07:30→20:27)
[2018-10-04] MEDS: cefepime 2g/NS 100ml ADVANTAGE 100 ML IV SCH (07:54)
[2018-10-04] MEDS: multivitamins, therapeutics tablet PO SCH (08:00)
[2018-10-04] MEDS: K and/or MAG REPLACEMENT MC SCH (08:00)
[2018-10-04] MEDS: methylnaltrexone br 12mg/0.6ml inj***SubQ only SQ SCH (08:00)
[2018-10-04] MEDS: pravastatin 10mg tablet PO SCH (08:00)
[2018-10-04] MEDS: vitamin D (cholecalciferol) 1,000 unit tablet PO SCH (08:00)
[2018-10-04] MEDS: lactobacillus rhamnosus 10,000 MMU CELLS/CAPSULE PO SCH ×2 (08:00→21:11)
[2018-10-04] MEDS: BUDESONIDE 0.25 MG/2 ML AMPUL.NEB IH SCH ×3 (08:54→19:57)
[2018-10-04] MEDS: metoclopramide 5 mg/ml inj IV PRN (09:15)
--- NOTE | 2018-10-04 10:30 | NUR ---
DR. Nettles paged concerning Pts nausea and not being able to swallow gastrogafin for AM ABD/pelvic CT. Dr. Nettles ordered 10mg compazine IV Q6H PRN for nausea. Dr. Nettles gave the go ahead for the ABD/pelvic CT without gastrogafin.
[2018-10-04 11:00] VITALS: BP 152/83
[2018-10-04] MEDS: proCHLORperazine 10 MG/2 ml inj IV PRN (14:08)
[2018-10-04 15:00] VITALS: BP 148/79
[2018-10-04] MEDS: metoclopramide 5 mg/ml inj IV SCH ×2 (15:05→21:08)
[2018-10-04] MEDS: HYDROmorphone inj. 0.5 MG/0.5 ML DISP.SYRIN IV PRN (15:47)
--- NOTE | 2018-10-04 18:15 | NUR ---
Problems reprioritized. Patient report given, questions answered & plan of care reviewed with Joanne Ferraro and Tristen FERRARO .
--- NOTE | 2018-10-04 18:31 | NUR ---
Patient in room PCU 3015A. I have received report from JORDON RN AND ROBERT RN and had the opportunity to ask questions and assume patient care. PATIENT RESTING COMFORTABLY IN BED. NS RUNNING AT 100 mL/hr. WILL CONTINUE TO MONITOR CLOSELY.
--- NOTE | 2018-10-04 18:33 | NUR ---
DELIVERY OF SHOPPING NEWSwater vessel captain: I have reviewed and agree with all interventions, assessments performed and documented by SANDEEP JONES.
[2018-10-04 19:00] VITALS: BP_SYST 133; BP_DIAS 57; BP_DIAS 87
[2018-10-04] MEDS: gabapentin 300mg capsule PO SCH (21:25)
[2018-10-04 23:00] VITALS: BP 124/71
[2018-10-05] MEDS: metoclopramide 5 mg/ml inj IV SCH ×4 (02:23→20:39)
[2018-10-05] MEDS: HYDROmorphone inj. 0.5 MG/0.5 ML DISP.SYRIN IV PRN ×3 (02:31→15:33)
[2018-10-05 03:00] VITALS: BP 120/65
[2018-10-05 05:28] LABS: BASOPHILS % (AUTO) 0.5 % (0-1); EOSINOPHILS # (AUTO) 0.2 X10'3 (0-0.9); EOSINOPHILS % (AUTO) 2.7 % (0-6); HEMATOCRIT 25.5 % (42.0-52.0); HEMOGLOBIN 8.4 g/dl (14.0-17.9); LYMPHOCYTES # (AUTO) 0.9 X10'3 (1.1-4.8); MEAN CORPUSCULAR HEMOGLOBIN 30.1 PG (27.0-31.0); MEAN CORPUSCULAR VOLUME 91.1 FL (78-98); MEAN PLATELET VOLUME 8.1 FL (7.4-10.4); MONOCYTES # (AUTO) 0.8 X10'3 (0-0.9); MONOCYTES % (AUTO) 11.8 % (2-12); NEUTROPHILS # (AUTO) 4.7 X10'3 (1.8-7.7); PLATELET COUNT 348 X10'3 (140-440); RED CELL DISTRIBUTION WIDTH 15.7 % (11.5-14.5); WHITE BLOOD COUNT 6.6 X10'3 (4.5-11.0)
[2018-10-05 05:53] LABS: ANION GAP 9 (8-16); BLOOD UREA NITROGEN 29 MG/DL (7-18); BUN/CREATININE RATIO 21.5 (5.4-32.0); CALCIUM 8.1 MG/DL (8.5-10.1); CHLORIDE 105 MMOL/L (99-107); CREATININE 1.35 MG/DL (0.60-1.10); GLUCOSE 88 MG/DL (70-104); POTASSIUM 3.5 MMOL/L (3.5-5.1); SODIUM 140 MMOL/L (135-145); TOTAL CARBON DIOXIDE 26.1 MMOL/L (24-32); eGFR 50 ML/MIN
[2018-10-05 06:00] VITALS: BP 122/60
--- NOTE | 2018-10-05 06:00 | NUR ---
Patient in room PCU 3016. I have received report from Joanne HOPKINS and Tristen HOPKINS and had the opportunity to ask questions and assume patient care.
--- NOTE | 2018-10-05 06:17 | NUR ---
Problems reprioritized. Patient report given, questions answered & plan of care reviewed with JORDON RN AND SANDEEP JONES.
--- NOTE | 2018-10-05 06:18 | NUR ---
Orientee documentation: I have reviewed and agree with all interventions, assessments performed and documented by Tristen HOPKINS. Orientee Medication Administration: For this medication-pass time frame, all medication were reviewed, dispensed, administered and documented per hospital policy by Tristen HOPKINS.
--- NOTE | 2018-10-05 06:30 | NUR ---
Patient in room PCU 3016. I have received report from ALCIRA RN and had the opportunity to ask questions and assume patient care.
[2018-10-05] MEDS: ipratropium/albuterol 3ml nebule NEB SCH ×5 (06:56→22:48)
[2018-10-05] MEDS: BUDESONIDE 0.25 MG/2 ML AMPUL.NEB IH SCH ×2 (06:56→19:47)
[2018-10-05] MEDS: multivitamins, therapeutics tablet PO SCH (07:18)
[2018-10-05] MEDS: lactobacillus rhamnosus 10,000 MMU CELLS/CAPSULE PO SCH ×2 (07:18→20:43)
[2018-10-05] MEDS: vitamin D (cholecalciferol) 1,000 unit tablet PO SCH (07:18)
[2018-10-05] MEDS: pantoprazole 40mg Tablet.DR PO SCH (07:18)
[2018-10-05] MEDS: furosemide 20 MG/2 ML vial IV SCH ×2 (07:19→20:39)
[2018-10-05] MEDS: pravastatin 10mg tablet PO SCH (07:19)
[2018-10-05] MEDS: dronedarone hcl 400mg tablet PO SCH ×2 (07:19→17:25)
[2018-10-05] MEDS: heparin, porcine 5000 units/ml vial SQ SCH ×2 (07:19→20:42)
[2018-10-05] MEDS: cefepime 2g/NS 100ml ADVANTAGE 100 ML IV SCH (07:20)
[2018-10-05] MEDS: metroNIDAZOLE-Flagyl 500mg/NS 100 ML IV SCH ×3 (07:20→23:05)
[2018-10-05] MEDS: normal saline 1000ml 1,000 ML IV SCH ×2 (07:33→17:29)
[2018-10-05] MEDS: K and/or MAG REPLACEMENT MC SCH (08:00)
[2018-10-05 11:00] VITALS: BP 136/74
[2018-10-05 15:00] VITALS: BP 134/83
--- NOTE | 2018-10-05 18:34 | NUR ---
Problems reprioritized. Patient report given, questions answered & plan of care reviewed with ALCIRA RN.
--- NOTE | 2018-10-05 18:34 | NUR ---
STEM SETTERsyrup mixer helper: I have reviewed and agree with all interventions, assessments performed and documented by SANDEEP JONES.
--- NOTE | 2018-10-05 18:56 | NUR ---
Patient in room PCU 3016. I have received report from SANDEEP RUVALCABA and had the opportunity to ask questions and assume patient care.
[2018-10-05 19:00] VITALS: BP 130/47
[2018-10-05] MEDS: gabapentin 300mg capsule PO SCH (20:43)
[2018-10-05 23:00] VITALS: BP 144/75
[2018-10-05] MEDS: HYDROcodone/acetaminophen 5mg/325mg tablet PO PRN (23:05)
[2018-10-06] MEDS: metoclopramide 5 mg/ml inj IV SCH ×4 (02:00→20:14)
[2018-10-06 03:00] VITALS: BP 123/69
[2018-10-06] MEDS: ipratropium/albuterol 3ml nebule NEB SCH ×6 (03:00→23:35)
[2018-10-06] MEDS: normal saline 1000ml 1,000 ML IV SCH (05:05)
[2018-10-06 06:00] VITALS: BP 138/72
[2018-10-06 06:02] LABS: BASOPHILS % (AUTO) 0.4 % (0-1); EOSINOPHILS # (AUTO) 0.2 X10'3 (0-0.9); EOSINOPHILS % (AUTO) 3.5 % (0-6); HEMATOCRIT 28.1 % (42.0-52.0); HEMOGLOBIN 9.2 g/dl (14.0-17.9); LYMPHOCYTES # (AUTO) 1.2 X10'3 (1.1-4.8); LYMPHOCYTES % (AUTO) 16.9 % (21-51); MEAN CORPUSCULAR HEMOGLOBIN 29.8 PG (27.0-31.0); MEAN CORPUSCULAR HGB CONC 32.6 g/dL (33.0-36.5); MEAN CORPUSCULAR VOLUME 91.4 FL (78-98); MEAN PLATELET VOLUME 8.3 FL (7.4-10.4); MONOCYTES # (AUTO) 0.7 X10'3 (0-0.9); MONOCYTES % (AUTO) 10.2 % (2-12); NEUTROPHILS # (AUTO) 4.8 X10'3 (1.8-7.7); PLATELET COUNT 367 X10'3 (140-440); RED BLOOD COUNT 3.08 X10'6 (4.70-6.10); RED CELL DISTRIBUTION WIDTH 15.4 % (11.5-14.5)
[2018-10-06 06:05] LABS: ALBUMIN 2.2 G/DL (3.4-5.0); ANION GAP 10 (8-16); BLOOD UREA NITROGEN 27 MG/DL (7-18); BUN/CREATININE RATIO 21.4 (5.4-32.0); CALCIUM 8.3 MG/DL (8.5-10.1); CHLORIDE 104 MMOL/L (99-107); CREATININE 1.26 MG/DL (0.60-1.10); GLUCOSE 88 MG/DL (70-104); POTASSIUM 3.7 MMOL/L (3.5-5.1); SODIUM 138 MMOL/L (135-145); TOTAL CARBON DIOXIDE 24.2 MMOL/L (24-32); eGFR 54 ML/MIN
--- NOTE | 2018-10-06 06:21 | NUR ---
Problems reprioritized. Patient report given, questions answered & plan of care reviewed with JORDON RN AND SANDEEP JONES.
--- NOTE | 2018-10-06 06:30 | NUR ---
Patient in room PCU 3016. I have received report from Tona HOPKINS and had the opportunity to ask questions and assume patient care.
--- NOTE | 2018-10-06 06:34 | NUR ---
Patient in room PCU 3016. I have received report from SANDEEP KELLY and had the opportunity to ask questions and assume patient care.
[2018-10-06] MEDS: furosemide 20 MG/2 ML vial IV SCH (07:26)
[2018-10-06] MEDS: cefepime 2g/NS 100ml ADVANTAGE 100 ML IV SCH (07:27)
[2018-10-06] MEDS: heparin, porcine 5000 units/ml vial SQ SCH ×2 (07:27→20:14)
[2018-10-06] MEDS: metroNIDAZOLE-Flagyl 500mg/NS 100 ML IV SCH ×2 (07:27→15:46)
[2018-10-06] MEDS: dronedarone hcl 400mg tablet PO SCH ×2 (07:30→17:58)
[2018-10-06] MEDS: methylnaltrexone br 12mg/0.6ml inj***SubQ only SQ SCH (07:51)
[2018-10-06] MEDS: BUDESONIDE 0.25 MG/2 ML AMPUL.NEB IH SCH ×2 (07:59→19:31)
[2018-10-06] MEDS: K and/or MAG REPLACEMENT MC SCH (08:00)
[2018-10-06] MEDS: proCHLORperazine 10 MG/2 ml inj IV PRN (08:04)
[2018-10-06] MEDS: pantoprazole 40mg Tablet.DR PO SCH (08:35)
[2018-10-06] MEDS: lactobacillus rhamnosus 10,000 MMU CELLS/CAPSULE PO SCH ×2 (08:36→20:15)
[2018-10-06] MEDS: multivitamins, therapeutics tablet PO SCH (08:37)
[2018-10-06] MEDS: vitamin D (cholecalciferol) 1,000 unit tablet PO SCH (08:38)
[2018-10-06] MEDS: pravastatin 10mg tablet PO SCH (08:39)
[2018-10-06 08:48] LABS: PLATELET ESTIMATE NORMAL; TOTAL CELLS COUNTED 100
[2018-10-06 08:49] LABS: POLYCHROMASIA FEW
[2018-10-06 08:51] LABS: LARGE PLATELETS FEW; SCHISTOCYTES FEW
[2018-10-06 08:52] LABS: BURR CELLS FEW; HYPOCHROMASIA 1+
[2018-10-06] MEDS: HYDROmorphone inj. 0.5 MG/0.5 ML DISP.SYRIN IV PRN ×3 (09:52→22:46)
[2018-10-06 11:00] VITALS: BP 121/77
--- NOTE | 2018-10-06 13:55 | NUR ---
reassessment: Pt Advanced to full liquids PO 0-25% clears post-op. LBM 10/05. NG out for 2 days now per RN. Ensure Enlive TIDWM added for additional protein/energy needs post-op. Will monitor for diet advancement and additional protein needs. Recommend: 1. Advance as medically indicated to regular diet 2. ensure enlive TIDWM 3. PO Routine bowel care while taking pain medication 4. Wt per rx Addendum: 10/06/18 at [address] Amended: Links added.
--- NOTE | 2018-10-06 16:03 | NUR ---
PAGER ID: [phone] MESSAGE: DR. TAPIA, [id number]/MARIE, C/O INDIGESTION. DOES NOT WANT MAALOX. HAVE ORDER FOR TUMS 2MG. EVEN IF I COULD CUT 0.004 OF A TAB, I DO NOT THINK IT WILL HELP. PLEASE CHANGE THE ORDER TO SOMETHING I CAN ADM.TY JORDON [id number]
--- NOTE | 2018-10-06 16:16 | NUR ---
CALL TO RX., RE:NO 1LITER NS WITH 20MEQ KCL AVAILABLE.JOHNATHAN STATES "WILL SEND IT UP".
[2018-10-06] MEDS: sucralfate 1gm/10ml UD suspension PO SCH ×3 (16:35→20:20)
[2018-10-06] MEDS: levoFLOXACIN-Levaquin 500mg/D5 100 ML IV SCH (16:57)
--- NOTE | 2018-10-06 18:02 | NUR ---
PAGER ID: [phone] MESSAGE: DR. TAPIA, [id number]/MARIE, NEW ORDER FOR NS 20 MEQ KCL AT 70CC/HOUR, TO START ON 10-07-18 AT 1135??? JORDON [phone]. TY.
[2018-10-06] MEDS: Potassium Cl inj 20 MEQ in normal saline 1000ml 990 ML IV SCH (18:11)
--- NOTE | 2018-10-06 18:39 | NUR ---
Problems reprioritized. Patient report given, questions answered & plan of care reviewed with DAVON RN.
--- NOTE | 2018-10-06 18:40 | NUR ---
SUPERVISOR LABOR GANGcommunications scientist: I have reviewed and agree with all interventions, assessments performed and documented by SANDEEP JONES.
--- NOTE | 2018-10-06 18:43 | NUR ---
Patient in room PCU 3019r. I have received report from SANDEEP Simon and had the opportunity to ask questions and assume patient care. Patient awake for bedside report. NS c 20 mEq K running at 70 mL/hr . Will continue to monitor closely.
[2018-10-06 19:00] VITALS: BP 128/66
[2018-10-06] MEDS: gabapentin 300mg capsule PO SCH (20:15)
[2018-10-06 23:00] VITALS: BP 131/67
[2018-10-07] MEDS: metroNIDAZOLE-Flagyl 500mg/NS 100 ML IV SCH ×2 (00:05→07:28)
[2018-10-07] MEDS: metoclopramide 5 mg/ml inj IV SCH ×2 (02:00→07:26)
[2018-10-07 03:00] VITALS: BP 136/76
[2018-10-07] MEDS: ipratropium/albuterol 3ml nebule NEB SCH ×3 (03:39→11:33)
[2018-10-07 05:21] LABS: ALBUMIN 2.1 G/DL (3.4-5.0); ANION GAP 10 (8-16); BLOOD UREA NITROGEN 24 MG/DL (7-18); BUN/CREATININE RATIO 19.7 (5.4-32.0); CHLORIDE 105 MMOL/L (99-107); CREATININE 1.22 MG/DL (0.60-1.10); GLUCOSE 100 MG/DL (70-104); POTASSIUM 3.5 MMOL/L (3.5-5.1); SODIUM 139 MMOL/L (135-145); TOTAL CARBON DIOXIDE 24.3 MMOL/L (24-32); eGFR 56 ML/MIN
[2018-10-07 06:56] VITALS: BP 151/75
[2018-10-07] MEDS: BUDESONIDE 0.25 MG/2 ML AMPUL.NEB IH SCH (07:03)
[2018-10-07] MEDS: pantoprazole 40mg Tablet.DR PO SCH (07:25)
[2018-10-07] MEDS: vitamin D (cholecalciferol) 1,000 unit tablet PO SCH (07:25)
[2018-10-07] MEDS: lactobacillus rhamnosus 10,000 MMU CELLS/CAPSULE PO SCH (07:25)
[2018-10-07] MEDS: multivitamins, therapeutics tablet PO SCH (07:25)
[2018-10-07] MEDS: sucralfate 1gm/10ml UD suspension PO SCH ×2 (07:25→11:00)
[2018-10-07] MEDS: heparin, porcine 5000 units/ml vial SQ SCH (07:27)
[2018-10-07] MEDS: levoFLOXACIN-Levaquin 500mg/D5 100 ML IV SCH (07:28)
[2018-10-07] MEDS: K and/or MAG REPLACEMENT MC SCH (07:42)
[2018-10-07] MEDS: pravastatin 10mg tablet PO SCH (07:42)
[2018-10-07] MEDS: dronedarone hcl 400mg tablet PO SCH (10:08)
[2018-10-07] MEDS ORDERED: Potassium Cl inj 20 MEQ in normal saline 1000ml 990 ML IV SCH (11:35)
[2018-10-07] MEDS: Potassium Cl inj 20 MEQ in normal saline 1000ml 990 ML IV SCH (11:42)
[2018-10-07 12:48] VITALS: BP 134/73
--- NOTE | 2018-10-07 12:55 | NUR ---
REPORT CALLED TO [facility] ACCEPTING NURSE. IV AND SAWANT REQUESTED BY FACILITY T O REMAIN INTACT. PT PICKED UP BY [facility] STAFF. ESCORTED VIA GURNEY. BELONGINGS IN HAND, VSS.
== END 2018-10-07 13:02 | DRG 853 ==
LOC: ER 13:08 → ED HOLD 16:02 → CMPBEDREQ 21:37 → EDBEDREQSVC 21:37 → CICU 2S 22:05 → PCU 3S 09-29 11:53
PROVIDERS: ADMIT Hospitalist; ATTEND Internal Medicine
PROC: 0DNW0ZZ Release Peritoneum, Open Approach (ICD-10-PCS; 2018-09-28)
PROC: 0DTJ0ZZ Resection of Appendix, Open Approach (ICD-10-PCS; principal; 2018-09-28 20:22)
PROC: BW211ZZ Computerized Tomography (CT Scan) of Abdomen and Pelvis using Low Osmolar Contrast (ICD-10-PCS; 2018-10-04)
DX: A41.9 Sepsis, unspecified organism (principal); K35.32 Acute appendicitis with perforation, localized peritonitis, and gangrene, without abscess; K56.7 Ileus, unspecified; K91.89 Other postprocedural complications and disorders of digestive system; B96.1 Klebsiella pneumoniae [K. pneumoniae] as the cause of diseases classified elsewhere; H91.90 Unspecified hearing loss, unspecified ear; I12.9 Hypertensive chronic kidney disease with stage 1 through stage 4 chronic kidney disease, or unspecified chronic kidney disease; K66.0 Peritoneal adhesions (postprocedural) (postinfection); N18.3 Chronic kidney disease, stage 3 (moderate); I25.10 Atherosclerotic heart disease of native coronary artery without angina pectoris; J44.9 Chronic obstructive pulmonary disease, unspecified; N40.0 Benign prostatic hyperplasia without lower urinary tract symptoms; N50.819 Testicular pain, unspecified; Z85.528 Personal history of other malignant neoplasm of kidney; Z86.73 Personal history of transient ischemic attack (TIA), and cerebral infarction without residual deficits; Z90.5 Acquired absence of kidney; Z88.0 Allergy status to penicillin; Z88.8 Allergy status to other drugs, medicaments and biological substances; Z91.041 Radiographic dye allergy status; Z79.899 Other long term (current) drug therapy; Z79.82 Long term (current) use of aspirin
CPT/HCPCS: 36415; 71045; 74176; 76700; 76870; 76937; 80048; 80053; 81001; 82948; 83605; 83690; 83735; 84100; 84484; 85025; 86885; 86900; 86901; 87040; 87070; 87075; 87076; 87077; 87185; 87186; 88304; 93005; 93306; 94640; 94760; 96374; 96375; 96376; 97010; 97110; 97116; 97161; 97530; 99285; A6253; A6266; A6449; A7000; C1758; C9113; G0378; J0692; J0780; J1100; J1170; J1580; J1644; J1940; J1956; J2001; J2270; J2405; J2704; J2710; J2765; J3010; J3480; J3490; J7030; J7120; Q9963

== ENCOUNTER 2019-02-07 12:23 | Emergency (ER) | payer MEDICARE, OTHER ==
[~2019-02-07] VITALS: Ht 180.3 cm; Wt 90.9 kg
[~2019-02-07 12:23] MED LIST changes: -ALBU8.5H8 IH; -ASPI81TA52 PO; +CALC500T11 PO; +DRON400T2 PO; -FERR325T28 PO; -FINA5TAB11 PO; -LISI-604 PO; +MULT1TAB74 PO; +OMEP40CA13 PO; -OMEP40CA37 PO; -UMEC1DIS IH
[2019-02-07 12:53] LABS: BASOPHILS % (AUTO) 0.8 % (0-1); EOSINOPHILS # (AUTO) 0.1 X10'3 (0-0.9); EOSINOPHILS % (AUTO) 1.6 % (0-6); HEMATOCRIT 25.4 % (42.0-52.0); LYMPHOCYTES # (AUTO) 1.4 X10'3 (1.1-4.8); LYMPHOCYTES % (AUTO) 21.7 % (21-51); MEAN CORPUSCULAR HEMOGLOBIN 27.4 PG (27.0-31.0); MEAN CORPUSCULAR HGB CONC 31.5 g/dL (33.0-36.5); MEAN PLATELET VOLUME 8.3 FL (7.4-10.4); MONOCYTES # (AUTO) 0.6 X10'3 (0-0.9); MONOCYTES % (AUTO) 9.8 % (2-12); NEUTROPHILS # (AUTO) 4.2 X10'3 (1.8-7.7); NEUTROPHILS % (AUTO) 66.1 % (42-75); PLATELET COUNT 186 X10'3 (140-440); RED BLOOD COUNT 2.92 X10'6 (4.70-6.10); RED CELL DISTRIBUTION WIDTH 20.6 % (11.5-14.5); WHITE BLOOD COUNT 6.4 X10'3 (4.5-11.0)
[2019-02-07 13:06] LABS: ALANINE AMINOTRANSFERASE 18 U/L (12-78); ALBUMIN 3.3 G/DL (3.4-5.0); ALBUMIN/GLOBULIN RATIO 0.9 (1.1-1.5); ALKALINE PHOSPHATASE 76 IU/L (46-116); ANION GAP 8 (8-16); ASPARTATE AMINO TRANSFERASE 18 U/L (10-37); BILIRUBIN,TOTAL 0.3 MG/DL (0.1-1.0); BLOOD UREA NITROGEN 25 MG/DL (7-18); BUN/CREATININE RATIO 13.4 (5.4-32.0); CALCIUM 8.7 MG/DL (8.5-10.1); CHLORIDE 108 MMOL/L (99-107); CREATININE 1.87 MG/DL (0.60-1.10); GLUCOSE 122 MG/DL (70-104); POTASSIUM 4.2 MMOL/L (3.5-5.1); SODIUM 141 MMOL/L (135-145); TOTAL CARBON DIOXIDE 24.9 MMOL/L (24-32); TOTAL PROTEIN 7.1 G/DL (6.4-8.2); eGFR 34 ML/MIN
[2019-02-07 13:18] LABS: CLARITY,URINE CLEAR (Clear); COLOR,URINE STRAW (Yellow); GLUCOSE, URINE NEGATIVE (Neg); KETONES,URINE NEGATIVE (Neg); LEUKOCYTE ESTERASE ,URINE NEGATIVE (Neg); NITRITES, URINE NEGATIVE (Neg); OCCULT BLOOD,URINE NEGATIVE (Neg); PROTEIN,URINE NEGATIVE (Neg); UROBILINOGEN,URINE 0.2 E.U/dL (0.2-1.0)
[2019-02-07 13:19] LABS: UA COLLECTION TYPE URINAL
--- NOTE | 2019-02-07 13:52 | NUR ---
PT RESTING QUIETLY ON GURNEY, DENIES C/O
[2019-02-07 14:14] LABS: PLATELET ESTIMATE NORMAL
[2019-02-07 14:15] LABS: BURR CELLS FEW; HYPOCHROMASIA 1+; LARGE PLATELETS FEW; POLYCHROMASIA FEW; SCHISTOCYTES FEW
--- NOTE | 2019-02-07 14:21 | NUR ---
NURSE SPOKE WITH NADJA FROM [employer], NO EVENTS WERE ASSOCIATED WITH TODAY'S SYNCOPAL EPISODE. REPORT WILL BE FORWARDED TO DR AYALA'S OFFICE, PER NADJA. FOREST SHAY AWARE
--- NOTE | 2019-02-07 14:23 | NUR ---
PT CALLING TO TRY TO FIND A RIDE HOME
[2019-02-07 14:56] VITALS: BP 117/64
== END 2019-02-07 14:58 | disposition home or self-care (01) ==
LOC: ER 12:24
DX: R55 Syncope and collapse (principal); D53.9 Nutritional anemia, unspecified; N17.9 Acute kidney failure, unspecified; R42 Dizziness and giddiness; I50.9 Heart failure, unspecified; R60.0 Localized edema; I48.91 Unspecified atrial fibrillation; J44.9 Chronic obstructive pulmonary disease, unspecified; I11.0 Hypertensive heart disease with heart failure; Z86.73 Personal history of transient ischemic attack (TIA), and cerebral infarction without residual deficits; Z88.0 Allergy status to penicillin; Z88.8 Allergy status to other drugs, medicaments and biological substances; Z79.899 Other long term (current) drug therapy; Z95.0 Presence of cardiac pacemaker; Z90.5 Acquired absence of kidney; Z98.890 Other specified postprocedural states
CPT/HCPCS: 36415; 71045; 80053; 81003; 83735; 83880; 84484; 85025; 93005; 99284

== ENCOUNTER 2019-03-14 10:24 | Emergency (ER) | payer MEDICARE ==
[~2019-03-14] VITALS: Ht 180.3 cm; Wt 93.0 kg
[2019-03-14 11:57] VITALS: BP 131/69
== END 2019-03-14 11:59 | disposition home or self-care (01) ==
LOC: ER 10:24
DX: M67.441 Ganglion, right hand (principal); R20.0 Anesthesia of skin; I48.91 Unspecified atrial fibrillation; I10 Essential (primary) hypertension; J44.9 Chronic obstructive pulmonary disease, unspecified; Z86.73 Personal history of transient ischemic attack (TIA), and cerebral infarction without residual deficits; Z95.0 Presence of cardiac pacemaker; Z90.5 Acquired absence of kidney; Z88.0 Allergy status to penicillin; Z88.6 Allergy status to analgesic agent; Z88.8 Allergy status to other drugs, medicaments and biological substances; Z79.899 Other long term (current) drug therapy; Z98.890 Other specified postprocedural states
CPT/HCPCS: 29125; 99283